=== PATIENT | male | born 1995 | race African-American/Black ===

== ENCOUNTER 2018-12-28 00:58 | Emergency (ER) | payer MEDICAID ==
[~2018-12-28] VITALS: Ht 170.2 cm; Wt 57.0 kg
[2018-12-28 03:23] VITALS: BP 156/94
[2018-12-28] MEDS ORDERED: LIDOCAINE HCL/PF 1% 10 MG/ML 5ML VIAL IJ ONE (04:00)
[2018-12-28] MEDS ORDERED: BACITRACIN ZINC OINT UDPKT TOP ONE (04:00)
== END 2018-12-28 05:41 | disposition home or self-care (01) ==
LOC: ER 00:58
DX: S61.011A Laceration without foreign body of right thumb without damage to nail, initial encounter (principal); F17.200 Nicotine dependence, unspecified, uncomplicated; F12.10 Cannabis abuse, uncomplicated; W45.8XXA Other foreign body or object entering through skin, initial encounter; Y93.89 Activity, other specified; Y92.89 Other specified places as the place of occurrence of the external cause; Y99.8 Other external cause status
CPT/HCPCS: 12002; 99283; J3490; Z7610